=== PATIENT | female | born 1975 | race Two or more races ===

== ENCOUNTER 2021-10-07 11:27 | Emergency (ER) | payer OTHER ==
[~2021-10-07] VITALS: Ht 144.8 cm; Wt 68.0 kg
[2021-10-07 11:45] VITALS: BP 136/84
--- NOTE | 2021-10-07 11:58 | NUR ---
Pt wheelchair assisted to Chair C.
[2021-10-07] MEDS ORDERED: ACET-8386 PO (12:08)
--- NOTE | 2021-10-07 12:10 | NUR ---
PER ОЛЕГ PLUNKETT, PLACED AN ORTHO SHOE ON PT'S RIGHT FOOT AND PROVIDED HER WITH CRUTCHES. PT SUCCESSFULLY DEMONSTRATED PROPER CRUTCH USE.
--- NOTE | 2021-10-07 12:15 | NUR ---
GOOD/WNL PMS POST FOOT SPLINT.
[2021-10-07 12:20] VITALS: BP 133/74
--- NOTE | 2021-10-07 12:23 | NUR ---
Patient discharged with v/s stable. Written and verbal after care instructions given and explained. Patient alert, oriented and verbalized understanding of instructions. Ambulatory with steady gait. All questions addressed prior to discharge. ID band removed. Patient advised to follow up with PMD. Rx of NORCO 5-325 given. Patient educated on indication of medication including possible reaction and side effects. Opportunity to ask questions provided and answered.
== END 2021-10-07 12:20 | disposition home or self-care (01) ==
LOC: MED 11:27
DX: S92.351A Displaced fracture of fifth metatarsal bone, right foot, initial encounter for closed fracture (principal); X58.XXXA Exposure to other specified factors, initial encounter; Y93.89 Activity, other specified; Y92.89 Other specified places as the place of occurrence of the external cause; Y99.8 Other external cause status
CPT/HCPCS: 99283